=== PATIENT | female | born 1970 | race Hispanic/Latino ===

== ENCOUNTER 2025-02-16 08:50 | Day surgery (SDC) | payer OTHER ==
[2025-02-11 11:16] LABS: BASOPHILS # (AUTO) 0.06 K/uL (0.00-0.20); BASOPHILS % (AUTO) 1.1 % (0.0-5.0); EOSINOPHILS % (AUTO) 1.9 % (0.0-8.0); HEMATOCRIT 40.3 % (36-48); IMMATURE GRANULOCYTE ABSOLUTE 0.02 K/uL (0-1); LYMPHOCYTES # (AUTO) 1.3 K/uL (1.0-4.8); LYMPHOCYTES % (AUTO) 24.6 % (21.0-51.0); MEAN CORPUSCULAR HEMOGLOBIN 30.3 pg (27.0-33.0); MEAN CORPUSCULAR VOLUME 91.8 fL (79-99); MONOCYTES # (AUTO) 0.4 K/uL (0.1-1.0); NEUTROPHILS # (AUTO) 3.5 K/uL (1.8-7.7); PLATELET COUNT (AUTO) 288 K/uL (130-400); RED BLOOD CELL COUNT(AUTO) 4.39 MIL/uL (4.00-5.50); RED CELL DISTRIBUTION WIDTH 12.6 % (11.0-15.5); WHITE BLOOD COUNT (AUTO) 5.4 K/uL (4.8-10.8)
[2025-02-11 11:27] LABS: CREATININE 0.7 mg/dL (0.5-1.0); POTASSIUM 3.7 mmol/L (3.5-5.1)
[2025-02-11 11:39] LABS: INR 1.01 (0.85-1.15); PROTHROMBIN TIME 10.7 SEC (9.6-11.6)
[2025-02-11 11:41] LABS: PARTIAL THROMBOPLASTIN TIME 30.3 SEC (26.3-35.5)
[2025-02-11 12:09] VITALS: BP 119/58; PULSE 67; RESP 15; TEMP 97.9
[2025-02-16] VITALS (13 sets, daily range): BP systolic 104–130; BP diastolic 51–78; PULSE 68–99; RESP 15–18; TEMP 96.9–97.7
[~2025-02-16] VITALS: Ht 152.4 cm; Wt 68.2 kg
[~2025-02-16 08:50] MED LIST: CYCL5TAB3 PO; NAPR-1194 PO
[2025-02-16] MEDS: ceFAZolin SODIUM 2 GM VIAL ONE (09:23)
[2025-02-16] MEDS: LACTATED RINGERS 1000ML 1,000 ML IV ONE (09:24)
[2025-02-16] MEDS ORDERED: proPOFol 10 MG/ML 20ML VIAL IV ONE (10:28)
[2025-02-16] MEDS ORDERED: rocuRONium bROMide 10MG/1ML 5ML VL ONE (10:28)
[2025-02-16] MEDS ORDERED: MIDAZOLAM HCL 1 MG/ML 2ML VIAL ONE (10:28)
[2025-02-16] MEDS ORDERED: FENTanyl CITRate PF 50 MCG/1 ML 2ML VIAL ONE (10:28)
[2025-02-16] MEDS ORDERED: LIDOCAINE PF 100MG/5ML (2%) SYRINGE 5ML ONE (10:28)
[2025-02-16] MEDS ORDERED: ROPivacaine 0.5% 5MG/ML 30ML ONE (10:54)
[2025-02-16] MEDS ORDERED: dexaMETHasone SOD PHOSPHATE 10MG/ML 1ML VIAL ONE (10:55)
[2025-02-16] MEDS ORDERED: HYDR-4060 PO (11:11)
[2025-02-16] MEDS ORDERED: phenylEPHRINE HCL 10 MG/ML 1ML VIAL IV ONE (11:19)
[2025-02-16] MEDS: ceFAZolin SODIUM 2 GM VIAL IVPB ONE (11:20)
[2025-02-16] MEDS ORDERED: ondanSETRON 4MG INJ ONE (11:24)
[2025-02-16] MEDS ORDERED: EPINEPHrine PF 1MG (1:1,000) 1 MG/ML AMP ONE ×2 (11:29)
[2025-02-16] MEDS ORDERED: ePHEDrine SULFate 50 MG/ML AMPULE ONE (11:59)
[2025-02-16] MEDS ORDERED: NEOSTIGMINE METHYLSULFATE 1MG/ML IV ONE (13:20)
[2025-02-16] MEDS ORDERED: GLYCOPYRROLATE 0.2 MG/ML 5 ML VIAL ONE (13:20)
--- NOTE | 2025-02-16 14:40 | NUR ---
dressing: bulky dressing to right shoulder dry/intact. rt arm in place to arm sling. ice bag applied as per orders.
--- NOTE | 2025-02-16 14:45 | NUR ---
dressing: bulky dressing to right shoulder remained dry/intact with arm sling in place and ice bag in place.
--- NOTE | 2025-02-16 17:17 | OP ---
Operative Note: DATE OF PROCEDURE: 02/16/25 SURGEON: MICHAEL MOON MD CHEMIST: Grace Platt ANESTHESIA: General and interscalene block ANESTHESIOLOGIST/COMMUNICATION ARTS LECTURER: Kindra Oneill PREOPERATIVE DIAGNOSIS: Right shoulder biceps tendinitis, partial-thickness rotator cuff tear, subacromial impingement, acromioclavicular joint osteoarthritis POSTOPERATIVE DIAGNOSIS: Right shoulder biceps tendinitis, labral tear, partial-thickness rotator cuff tear, subacromial impingement, acromioclavicular joint osteoarthritis PROCEDURE: Right shoulder arthroscopic biceps tenodesis, distal clavicle excision, subacromial decompression ESTIMATED BLOOD LOSS: 20 cc FINDINGS: On insertion of the arthroscope into the shoulder joint we insertion of the long head of the biceps appeared to have labrum back superiorly with a tear of the anterior junction to the superior labrum. The subscapularis appeared intact as did of the supraspinatus with minimal fraying noted near the rotator interval. Her remainder of the rotator cuff appeared intact. The labrum continuing down the anterior joint was thin but appeared intact. We b pietro debriding the anterior superior labral tear then retracted and the long head of the biceps that the labral tissue were then pulled off the superior aspect of the labrum. We then debrided superior aspect of the labrum after resecting the long head of the biceps from its insertion site. We then performed our biceps tenodesis wound anteriorly he was the biceps exited the joint. Our instruments were repositioned in the subacromial space where we performed subacromial decompression with resection of the undersurface of the acromion approximately 3 mm of the bone. After removing the bursa we appreciated the rotator cuff tendon with some thinning and frayed appearance but without discrete tear. We identified the acromioclavicular joint and resected approximately 7-8 mm off the a lateral clavicle. INDICATIONS: 54-year-old female with a history of right shoulder pain since lifting something heavy. They were failing conservative management and found on MRI to have significant tearing of the supraspinatus with multiple areas of high-grade tears. After discussion of the risk, benefits, and alternatives, the patient voluntarily agreed to undergo the aforementioned procedure. DESCRIPTION OF PROCEDURE: Patient was properly identified in the preoperative holding area. Surgical site marking was verified and surgery consent reviewed. The patient was then taken to the operating room and placed in supine position on the OR table. After induction of general anesthesia, preoperative antibiotics were given, all bony prominences were well-padded as the patient was transitioned into beach chair position. The right upper extremity was then prepped and draped in usual sterile fashion. Surgical time out was done verifying correct surgery, side, site, and location to be performed. We then began the procedure by using an 18-gauge spinal needle to inject the shoulder joint with normal saline to distend the joint capsule. A posterior lateral portal was established using 11 blade and we inserted our arthroscope through this portal. We established an anterior portal using needle localization under direct visualization and placed a working cannula through this portal. We then performed a diagnostic arthroscopy with the aforementioned findings. We then evaluated the tear of the labrum off the superior aspect of the glenoid. We elected to go ahead and perform a biceps tenodesis to prevent further teari ng. Using the loop N Tack device, we obtain control of the long head of the biceps and then resected this off the superior aspect of the labrum at its insertion site. The biceps tendon was mushroomed out using the cautery tool. We then used the anchor within the kit to secure the long head of the biceps in the bicipital groove. We then repositioned the arthroscope and camera into the subacromial space establishing a lateral working portal. Through this portal we then performed the subacromial decompression excising the bursal tissue and identifying the rotator cuff tissue. There was no discrete tear noted in the rotator cuff from this side. We then inserted the bur and used this to remove a proximally 2-3 mm of the undersurface of the acromion as well as bone spurs at the acromioclavicular joint. We inserted the bur then through our anterior portal and performed our distal clavicle excision removing 7-8 mm of bone from the distal clavicle. We then removed as much of the arthroscopic fluid as possible and removed the arthroscopic instruments and camera. We expressed some the remaining fluid from the surrounding soft tissues. 3-0 nylon was then used to close the skin portals. Sterile soft dressing was applied. Patient was then placed into a shoulder immobilizer, awakened from anesthesia, and taken the recovery room in stable condition. MICHAEL MOON MD Feb 16, 2025 17:17
== END 2025-02-16 14:50 | disposition home or self-care (01) ==
LOC: DAH 08:50
PROVIDERS: ATTEND Student in an Organized Health Care Education/Training Program
DX: M75.21 Bicipital tendinitis, right shoulder (principal); M75.41 Impingement syndrome of right shoulder; M19.011 Primary osteoarthritis, right shoulder; M75.111 Incomplete rotator cuff tear or rupture of right shoulder, not specified as traumatic; M25.511 Pain in right shoulder; M25.512 Pain in left shoulder; F43.10 Post-traumatic stress disorder, unspecified; Z90.710 Acquired absence of both cervix and uterus; Z98.891 History of uterine scar from previous surgery; Z82.49 Family history of ischemic heart disease and other diseases of the circulatory system; Z82.3 Family history of stroke; Z79.01 Long term (current) use of anticoagulants; Z79.899 Other long term (current) drug therapy
CPT/HCPCS: 80048; 85025; 85610; 85730; 36415; 29828; 64415; 29826; 29824; A4663; J7030; J7120; J3010; J1100; J3490 ×3; J2003; J0171 ×2; J2250; J2704; J2405; J2710; J2795; J2371; J0690 ×2; A6223; A4215; A4222; A4221; A4216; A4450; A4223 ×2; A4600

== ENCOUNTER 2025-04-06 06:27 | Day surgery (SDC) | payer OTHER ==
[~2025-04-06] VITALS: Ht 152.4 cm; Wt 65.3 kg
[2025-04-06] VITALS (11 sets, daily range): BP systolic 102–117; BP diastolic 53–70; PULSE 61–76; RESP 16–17; TEMP 97.4–97.6
[2025-04-06] MEDS ORDERED: ESTR2TAB25 PO (07:22)
[2025-04-06] MEDS: 0.9%NACL 1000ML 1,000 ML IV ONE (07:30)
[2025-04-06] MEDS ORDERED: proPOFol 10 MG/ML 20ML VIAL IV ONE (09:57)
== END 2025-04-06 11:32 | disposition home or self-care (01) ==
LOC: ENDO 06:27 → DAH 06:27 → ENDO 11:32
PROVIDERS: ATTEND Internal Medicine Gastroenterology
DX: R93.3 Abnormal findings on diagnostic imaging of other parts of digestive tract (principal); K29.50 Unspecified chronic gastritis without bleeding; K31.7 Polyp of stomach and duodenum; K31.89 Other diseases of stomach and duodenum; R12 Heartburn; B96.81 Helicobacter pylori [H. pylori] as the cause of diseases classified elsewhere; F41.9 Anxiety disorder, unspecified; Z90.710 Acquired absence of both cervix and uterus; Z98.891 History of uterine scar from previous surgery; Z80.0 Family history of malignant neoplasm of digestive organs; Z79.899 Other long term (current) drug therapy
CPT/HCPCS: 43239; 43251; 43259; J7030; J2704; A4620; A4215 ×2; A4223; A4222; A4221; A4663; A4606; J3490